=== PATIENT | female | born 1950 | race Caucasian/White ===

== ENCOUNTER 2022-04-05 14:27 | Emergency (ER) | payer MEDICARE, MEDICAID ==
[~2022-04-05] VITALS: Ht 167.6 cm; Wt 73.9 kg
[~2022-04-05 14:27] MED LIST: ALBU90OI; AZIT250 PO; BENZ100A PO; BUTONI; CALCIUM; CARI350; CARI350 PO; CEPH500 PO; CIME400 PO; CLON1 PO; CODGUAEL PO; DIAZ5; DIAZIDE; DOXY100 PO; EYE; FENO48 PO; HYDACE5 PO; HYDGUAL120 PO; HYDHCL25; LEVFLO500 PO; MOMENI; PRED20 PO; PROM25; PSETRI; RELACOR; SUCR1; SULTRIDS PO; VERA240ER PO; VERA240ERB; VERAPAMIL; [UNRECOGNIZED DRUG - OTHER]; [UNRECOGNIZED DRUG - OTHER]; [UNRECOGNIZED DRUG - OTHER]; [UNRECOGNIZED DRUG - OTHER]; [UNRECOGNIZED DRUG - OTHER]; [UNRECOGNIZED DRUG - REMARK]; [UNRECOGNIZED DRUG - REMARK]; [UNRECOGNIZED DRUG - REMARK]
[2022-04-05] MEDS ORDERED: Q-Tussin100 MG/5 M PO (15:15)
== END 2022-04-05 15:19 | disposition home or self-care (01) ==
LOC: ER 14:27
DX: J06.9 Acute upper respiratory infection, unspecified (principal); Z88.0 Allergy status to penicillin; Z88.5 Allergy status to narcotic agent; Z88.8 Allergy status to other drugs, medicaments and biological substances; Z79.899 Other long term (current) drug therapy
CPT/HCPCS: 99282